=== PATIENT | female | born 1995 | race Hispanic/Latino ===

== ENCOUNTER 2018-01-16 23:02 | Outpatient (CLI) | payer SELFPAY ==
[2018-01-16 23:21] VITALS: BP 126/69
[2018-01-17 00:42] LABS: Amphetamine Screen,Urine PRESUMPTIVE NEGATIVE; Benzodiazepines Screen,Urine PRESUMPTIVE NEGATIVE; Cannabinoid Screen,Urine PRESUMPTIVE NEGATIVE; Cocaine Screen,Urine PRESUMPTIVE NEGATIVE; Methadone Screen,Urine PRESUMPTIVE NEGATIVE; Opiate Screen,Urine PRESUMPTIVE NEGATIVE
[2018-01-17 00:45] LABS: Bilirubin,Urine NEG (Negative); Blood,Urine NEG (Negative); Color,Urine Straw (Yellow); Protein,Urine <15 mg/dL mg/dL (Negative); Urobilinogen,Urine < 2.0 mg/dL (<2.0)
== END 2018-01-17 00:32 | disposition home or self-care (01) ==
LOC: TRG 23:02
PROVIDERS: ATTEND Obstetrics & Gynecology
DX: O99.333 Smoking (tobacco) complicating pregnancy, third trimester (principal); F17.200 Nicotine dependence, unspecified, uncomplicated; O47.1 False labor at or after 37 completed weeks of gestation; Z3A.39 39 weeks gestation of pregnancy
CPT/HCPCS: 59025; 80307; 81001

== ENCOUNTER 2018-01-21 05:02 | Outpatient (CLI) | payer OTHER ==
[2018-01-21 05:17] VITALS: BP 127/72
[2018-01-21] MEDS ORDERED: BICITRA PO ONE (06:19)
[2018-01-21] MEDS ORDERED: VISTARIL PO ONE (06:20)
[2018-01-21 07:30] LABS: Bacteria,Urine 1+ /HPF (Negative); Bilirubin,Urine NEG (Negative); Blood,Urine NEG (Negative); Color,Urine Yellow (Yellow); Mucus,Urine FEW /HPF; Protein,Urine <15 mg/dL mg/dL (Negative); Urobilinogen,Urine < 2.0 mg/dL (<2.0)
== END 2018-01-21 06:40 | disposition home or self-care (01) ==
LOC: TRG 05:02
PROVIDERS: ATTEND Obstetrics & Gynecology
DX: O99.333 Smoking (tobacco) complicating pregnancy, third trimester (principal); F17.200 Nicotine dependence, unspecified, uncomplicated; O48.0 Post-term pregnancy; Z3A.40 40 weeks gestation of pregnancy
CPT/HCPCS: 81001; Q0177

== ENCOUNTER 2018-01-22 20:23 | Inpatient (IN) | payer OTHER ==
--- NOTE | 2018-01-22 22:23 | History and Physical Report ---
History of Present Illness Date of examination: 01/22/18 (pt presents tonight with c/o SROM @ 0645 this AM) History of present illness: 22yo with EDC of 3-18 given by her original OB provider in [facility] HX: pt takes a prescription antacid QD last dose @ 1999 today Sugical HX: negative Family HX: Father hypertension; heart attack Mother hypertension STD: denies Smokin-3 cigs / day ETOH: denies Drugs: denies Pt denies any complications in this . Past History - Obstetrical History Expected Date of Delivery: 01/21/18 Actual Gestation: 40 Week(s) 1 Day(s) : 1 Para: 0 Number of Living Children: 0 Medications and Allergies Allergies Allergy/AdvReac Type Severity Reaction Status Date / Time No Known Allergies Allergy Verified 01/21/18 06:31 - Physical Exam Breasts: Positive: deferred Cardiovascular: Regular rate, Normal S1, Normal S2 Lungs: Positive: Clear to auscultation, Normal air movement Abdomen: Positive: normal appearance, soft, normal bowel sounds. Negative: distention, tenderness Genitourinary (Female): Positive: normal external genitalia, normal perenium Vulva: both: normal Vagina: Positive: normal moisture. Negative: discharge Cervix: Negative: lesion, discharge Uterus: Positive: normal size, normal contour Adnexa: both: normal Anus/Rectum: Positive: normal perianal skin, heme negative. Negative: rectal mass, hemorrhoids Extremities: Positive: edema Deep Tendon Reflex Grade: Normal +2 - Obstetrical FHR: category 1 Uterine Contraction Monitor Mode: External Cervical Dilatation: 1 (per supervisor cook house) Cervical Effacement Percentage: 50 station: -2 Uterine Contraction Pattern: Irregular Uterine Tone Measurement Phase: Resting Uterine Contraction Intensity: Mild Results All other labs normal. OB labs requested from previous provider but due to gestation all OB labs drawn tonight GBS done also. Assessment and Plan - Patient Problems (1) Insufficient care in third trimester Onset Date: ~01/22/18 Current Visit: Yes Status: Acute Plan to address problem: Pt moved to this area a few months ago She states she had care until 35 weeks with [facility]. Records requested Pt gives hx of SROM this AM @ 0645 with no further leakage. Pt negative tonight pooling, nitrazine. US ordered complete OB and BRANDON / EFW. All OB labs drawn, GBS , urine and UDS. Pt is aware we will not induce unless there is indication
[2018-01-22 23:12] LABS: Basophils % (Auto) 0.1 % (0.0-1.8); Eosinophils # (Auto) 0.1 K/mm3 (0.0-0.4); Eosinophils % (Auto) 0.7 % (0.0-4.3); Hematocrit 37.9 % (30.3-42.9); Hemoglobin 12.1 gm/dl (10.1-14.3); Lymphocytes # (Auto) 2.3 K/mm3 (1.2-5.4); Lymphocytes % (Auto) 16.5 % (13.4-35.0); Mean Corpuscular HGB Conc 32 % (30-34); Mean Corpuscular Hemoglobin 30 pg (28-32); Mean Corpuscular Volume 93 fl (79-97); Monocytes # (Auto) 0.6 K/mm3 (0.0-0.8); Platelet Count 165 K/mm3 (140-440); Red Blood Count 4.07 M/mm3 (3.65-5.03)
[2018-01-22 23:24] LABS: Amphetamine Screen,Urine PRESUMPTIVE NEGATIVE; Benzodiazepines Screen,Urine PRESUMPTIVE NEGATIVE; Cannabinoid Screen,Urine PRESUMPTIVE NEGATIVE; Cocaine Screen,Urine PRESUMPTIVE NEGATIVE; Methadone Screen,Urine PRESUMPTIVE NEGATIVE; Opiate Screen,Urine PRESUMPTIVE NEGATIVE
[2018-01-22 23:33] LABS: Hepatitis C Virus Antibody Non-Reactive (NonReactive)
[2018-01-22] MEDS ORDERED: BRETHINE SUB-Q PRN (23:33)
[2018-01-22] MEDS ORDERED: POLYCILLIN/NS 2 GM/100 ML 2 GM/100 ML BAG IV ONE (23:33)
[2018-01-22] MEDS ORDERED: ePHEDrine SULFATE IV PRN (23:33)
[2018-01-22] MEDS ORDERED: MINERAL OIL PO PRN (23:33)
[2018-01-22] MEDS ORDERED: XYLOCAINE 2% INFILTRATI ONE (23:33)
[2018-01-22] MEDS ORDERED: ZOFRAN IV PRN (23:33)
[2018-01-22] MEDS ORDERED: SUBLIMAZE IV PRN (23:40)
--- NOTE | 2018-01-22 23:41 | Progress Note ---
Assessment and Plan - Patient Problems (1) Insufficient care in third trimester Onset Date: ~01/22/18 Current Visit: Yes Status: Acute (2) Prolonged spontaneous rupture of membranes Onset Date: ~01/22/18 Current Visit: Yes Status: Acute Plan to address problem: BRANDON is zero Will admit pt Start low dose pitocin Begin Ampicillin due to GBS unknown VERTEX presentation confirmed by US Pt aware of findings Agrees with POC made aware of pt Subjective - Subjective Date of service: 01/22/18 (US BRANDON 0) Interval history: 22yo with EDC of 01-21-18 given by her original OB provider in [facility] HX: pt takes a prescription antacid QD last dose @ 1999 today Sugical HX: negative Family HX: Father hypertension; heart attack Mother hypertension STD: denies Smokin-3 cigs / day ETOH: denies Drugs: denies Pt denies any complications in this . Patient reports: movement normal Objective - Exam Breasts: deferred Cardiovascular: Regular rate Lungs: Clear to auscultation Abdomen: Present: normal appearance, soft. Absent: distention, tenderness Uterus: Present: normal FHR: auscultation normal, category 1 Uterine Contraction Monitor Mode: External Cervical Dilatation: 1 Cervical Effacement Percentage: 60 station: -3 Uterine Contraction Pattern: Irregular Uterine Tone Measurement Phase: Resting Uterine Contraction Intensity: Mild Extremities: normal, edema Deep Tendon Reflex Grade: Normal +2 - Labs Labs: Abnormal Labs 01/22/18 22:50 WBC 13.7 H RDW 18.0 H Seg Neutrophils % 78.7 H Seg Neutrophils # 10.8 H Laboratory Results - last 24 hr 01/22/18 01/22/18 01/22/18 22:42 22:50 22:50 WBC 13.7 H RBC 4.07 Hgb 12.1 Hct 37.9 MCV 93 MCH 30 MCHC 32 RDW 18.0 H Plt Count 165 Lymph % (Auto) 16.5 [place] % (Auto) 4.0 Eos % (Auto) 0.7 Baso % (Auto) 0.1 Lymph # 2.3 [place] # 0.6 Eos # 0.1 Baso # 0.0 Seg Neutrophils % 78.7 H Seg Neutrophils # 10.8 H Urine Opiates Screen Presumptive negative Urine Methadone Screen Presumptive negative Ur Barbiturates Screen Presumptive negative Ur Phencyclidine Scrn Presumptive negative Ur Amphetamines Screen Presumptive negative U Benzodiazepines Scrn Presumptive negative Urine Cocaine Screen Presumptive negative U Marijuana (THC) Screen Presumptive negative Drugs of Abuse Note Disclamer Hep Bs Antigen Hepatitis C Antibody Non-reactive 01/22/18 22:50 WBC RBC Hgb Hct MCV MCH MCHC RDW Plt Count Lymph % (Auto) [place] % (Auto) Eos % (Auto) Baso % (Auto) Lymph # [place] # Eos # Baso # Seg Neutrophils % Seg Neutrophils # Urine Opiates Screen Urine Methadone Screen Ur Barbiturates Screen Ur Phencyclidine Scrn Ur Amphetamines Screen U Benzodiazepines Scrn Urine Cocaine Screen U Marijuana (THC) Screen Drugs of Abuse Note Hep Bs Antigen Non-reactive Hepatitis C Antibody
[2018-01-22] MEDS ORDERED: PITOCin/NS 30 UNIT/500ML 30 UNITS/500 ML BAG IV SCH (23:45)
[2018-01-22] MEDS ORDERED: PITOCin/NS 20 UNIT/1000ML DRIP 20 UNITS/1,000 ML BAG IV SCH (23:45)
--- NOTE | 2018-01-23 00:58 | Ultrasound Report ---
FINAL REPORT EXAM: US OB > = 14 WEEKS FETUS HISTORY: insufficient care TECHNIQUE: Transabdominal imaging was obtained of the pelvis along with Doppler interrogation of the uterus. FINDINGS: There is a single viable intrauterine in cephalic presentation with an estimated age age of 37 weeks 1 day based on sonographic criteria. A complete survey of organs was not obtained. The heart is 145 BPM. The placenta is along the right lateral wall and is grade 2. The cervical length is 2.3 cm. The BRANDON is 1.4 cm which is markedly diminished. Estimated weight is 2897 grams. The head circumference/abdominal circumference ratio is 1.13 which is elevated. IMPRESSION: Single viable intra in cephalic presentation corresponding to 37 weeks 1 day. The heart rate is 145 BPM. Oligohydramnios. the BRANDON is 1.4 cm.
[2018-01-23] MEDS: NORMOSOL-R PH 7.4 1,000 ML IV SCH ×3 (01:36→08:35)
[2018-01-23 02:03] LABS: Rubella IgG Antibody Non-Immune (Immune)
[2018-01-23] MEDS: AMPICILLIN/NS 1 GM/50 ML 1 GM/50 ML BAG IV SCH ×2 (04:56→09:35)
--- NOTE | 2018-01-23 05:55 | Progress Note ---
Assessment and Plan tracing intermittent SVE 3-4,100,-1 ISE/IUPC placed Pt requesting Epidural Bolus started Will increase pit per protocol. Re-eval after epidural Subjective - Subjective Date of service: 01/23/18 (increasing pain with ctx) Interval history: 22yo with EDC of 318 given by her original OB provider in [facility] HX: pt takes a prescription antacid QD last dose @ 1999 today Sugical HX: negative Family HX: Father hypertension; heart attack Mother hypertension STD: denies Smokin-3 cigs / day ETOH: denies Drugs: denies Pt denies any complications in this . Patient reports: movement normal, contractions Objective - Vital Signs Vital Signs: Vital Signs - 12hr 01/23/18 01/23/18 01/23/18 01:43 01:49 02:35 Temperature 99.1 F Pulse Rate 70 70 Respiratory 18 18 Rate Blood Pressure 113/69 147/90 Blood Pressure 113/69 [Right] 01/23/18 01/23/18 02:40 03:05 Temperature Pulse Rate 71 Respiratory 18 Rate Blood Pressure 147/90 Blood Pressure [Right] - Exam Breasts: deferred Cardiovascular: Regular rate Lungs: Normal air movement Abdomen: Present: normal appearance, soft. Absent: distention, tenderness Uterus: Present: normal FHR: auscultation normal, category 1 Uterine Contraction Monitor Mode: Internal Cervical Dilatation: 3.5 (ISE/IUPC placed) Cervical Effacement Percentage: 100 station: -1 Uterine Contraction Pattern: Irregular Uterine Contraction Intensity: Moderate Extremities: edema Deep Tendon Reflex Grade: Normal +2 - Labs Labs: Abnormal Labs 01/22/18 22:50 WBC 13.7 H RDW 18.0 H Seg Neutrophils % 78.7 H Seg Neutrophils # 10.8 H Laboratory Results - last 24 hr 01/22/18 01/22/18 01/22/18 22:42 22:43 22:50 WBC 13.7 H RBC 4.07 Hgb 12.1 Hct 37.9 MCV 93 MCH 30 MCHC 32 RDW 18.0 H Plt Count 165 Lymph % (Auto) 16.5 [place] % (Auto) 4.0 Eos % (Auto) 0.7 Baso % (Auto) 0.1 Lymph # 2.3 [place] # 0.6 Eos # 0.1 Baso # 0.0 Seg Neutrophils % 78.7 H Seg Neutrophils # 10.8 H Sickle Cell Screen Hemoglobin A1c Urine Opiates Screen Presumptive negative Urine Methadone Screen Presumptive negative Ur Barbiturates Screen Presumptive negative Ur Phencyclidine Scrn Presumptive negative Ur Amphetamines Screen Presumptive negative U Benzodiazepines Scrn Presumptive negative Urine Cocaine Screen Presumptive negative U Marijuana (THC) Screen Presumptive negative Drugs of Abuse Note Disclamer Hep Bs Antigen Hepatitis C Antibody HIV 1&2 Antibody Rapid HIV P24 Antigen Rubella IgG Antibody Blood Type A POSITIVE Antibody Screen Negative 01/22/18 01/22/18 01/22/18 22:50 22:50 22:50 WBC RBC Hgb Hct MCV MCH MCHC RDW Plt Count Lymph % (Auto) [place] % (Auto) Eos % (Auto) Baso % (Auto) Lymph # [place] # Eos # Baso # Seg Neutrophils % Seg Neutrophils # Sickle Cell Screen Negative Hemoglobin A1c Urine Opiates Screen Urine Methadone Screen Ur Barbiturates Screen Ur Phencyclidine Scrn Ur Amphetamines Screen U Benzodiazepines Scrn Urine Cocaine Screen U Marijuana (THC) Screen Drugs of Abuse Note Hep Bs Antigen Non-reactive Hepatitis C Antibody Non-reactive HIV 1&2 Antibody Rapid Non react HIV P24 Antigen Non react Rubella IgG Antibody Non-immune Blood Type Antibody Screen 01/22/18 22:50 WBC RBC Hgb Hct MCV MCH MCHC RDW Plt Count Lymph % (Auto) [place] % (Auto) Eos % (Auto) Baso % (Auto) Lymph # [place] # Eos # Baso # Seg Neutrophils % Seg Neutrophils # Sickle Cell Screen Hemoglobin A1c 4.9 Urine Opiates Screen Urine Methadone Screen Ur Barbiturates Screen Ur Phencyclidine Scrn Ur Amphetamines Screen U Benzodiazepines Scrn Urine Cocaine Screen U Marijuana (THC) Screen Drugs of Abuse Note Hep Bs Antigen Hepatitis C Antibody HIV 1&2 Antibody Rapid HIV P24 Antigen Rubella IgG Antibody Blood Type Antibody Screen
[2018-01-23] MEDS ORDERED: ePHEDrine SULFATE IV PRN (06:50)
[2018-01-23] MEDS ORDERED: NARCAN 2 MG/2 ML IV PRN (06:50)
--- NOTE | 2018-01-23 06:50 | Anesthesia Consultation ---
Anesthesia Consult and Med Hx Date of service: 01/23/18 - Airway Anesthetic Teeth Evaluation: Good ROM Head & Neck: Adequate Mental/Hyoid Distance: Adequate Mallampati Class: Class II Intubation Access Assessment: Good - Pulmonary Exam CTA: Yes - Cardiac Exam Cardiac Exam: No Murmur - Pre-Operative Health Status ASA Pre-Surgery Classification: ASA2 Proposed Anesthetic Plan: Epidural - Pulmonary Hx Asthma: Yes (inhaler used within last year) COPD: No Hx Pneumonia: No - Cardiovascular System Hx Hypertension: No - Central Nervous System Hx Seizures: No Hx Psychiatric Problems: No - Endocrine Hx Renal Disease: No Hx End Stage Renal Disease: No Hx Hypothyroidism: No Hx Hyperthyroidism: No - Hematic Hx Anemia: Yes (pre ) Hx Sickle Cell Disease: No - Other Systems Hx Alcohol Use: No
[2018-01-23] MEDS ORDERED: fentaNYL-BUPIV 2 MCG/ML-0.125% 200 MCG/100 ML BAG EPIDURAL SCH (07:00)
--- NOTE | 2018-01-23 07:38 | Progress Note ---
Assessment and Plan patient comfortable with epidural. currently afebrile. no change in SVE. Continue to titrate pitocin for adequate labor. directed rn to change position frequently. Dr. Crouch aware of patient's status. will reeval PRN. - Patient Problems (1) 40 weeks gestation of Current Visit: Yes Status: Acute (2) Current smoker Current Visit: Yes Status: Acute (3) Insufficient care in third trimester Onset Date: ~01/22/18 Current Visit: Yes Status: Acute (4) Prolonged spontaneous rupture of membranes Onset Date: ~01/22/18 Current Visit: Yes Status: Acute Plan to address problem: monitor s/s infections temp q2h continue amp q4h until delivery Subjective - Subjective Date of service: 01/23/18 Principal diagnosis: Prolonged ROM (01/22/18 @ 0645) @ Patient reports: no new complaints (comfortable with epidural) Objective - Vital Signs Vital Signs: Vital Signs - 12hr 01/23/18 01/23/18 01/23/18 01:43 01:49 02:35 Temperature 99.1 F Pulse Rate 70 70 Respiratory 18 18 Rate Blood Pressure 113/69 147/90 Blood Pressure 113/69 [Right] O2 Sat by Pulse Oximetry 01/23/18 01/23/18 01/23/18 02:40 03:05 06:20 Temperature Pulse Rate 71 76 Respiratory 18 Rate Blood Pressure 147/90 114/79 Blood Pressure [Right] O2 Sat by Pulse Oximetry 01/23/18 01/23/18 01/23/18 06:32 06:33 06:38 Temperature Pulse Rate 79 74 80 Respiratory Rate Blood Pressure Blood Pressure [Right] O2 Sat by Pulse 94 95 95 Oximetry 01/23/18 01/23/18 01/23/18 06:40 06:43 06:45 Temperature Pulse Rate 90 73 69 Respiratory Rate Blood Pressure 136/65 125/68 Blood Pressure [Right] O2 Sat by Pulse 94 95 Oximetry 01/23/18 01/23/18 01/23/18 06:46 06:47 06:48 Temperature Pulse Rate 82 82 80 Respiratory Rate Blood Pressure 124/58 Blood Pressure [Right] O2 Sat by Pulse 92 96 Oximetry 01/23/18 01/23/18 01/23/18 06:53 06:54 06:58 Temperature Pulse Rate 69 74 83 Respiratory Rate Blood Pressure 121/57 Blood Pressure [Right] O2 Sat by Pulse 93 96 Oximetry 01/23/18 01/23/18 01/23/18 07:00 07:03 07:06 Temperature Pulse Rate 83 88 90 Respiratory Rate Blood Pressure Blood Pressure [Right] O2 Sat by Pulse 86 95 94 Oximetry 01/23/18 01/23/18 01/23/18 07:08 07:13 07:18 Temperature Pulse Rate 87 81 84 Respiratory Rate Blood Pressure Blood Pressure [Right] O2 Sat by Pulse 95 96 97 Oximetry 01/23/18 01/23/18 01/23/18 07:23 07:28 07:33 Temperature Pulse Rate 76 80 83 Respiratory Rate Blood Pressure Blood Pressure [Right] O2 Sat by Pulse 97 96 96 Oximetry 01/23/18 07:35 Temperature Pulse Rate 75 Respiratory Rate Blood Pressure 127/68 Blood Pressure [Right] O2 Sat by Pulse Oximetry - Exam Breasts: normal Cardiovascular: Regular rate Lungs: Clear to auscultation, Normal air movement Abdomen: Present: normal appearance, soft Vulva: both: normal Uterus: Present: normal FHR: category 2 Uterine Contraction Monitor Mode: Internal Cervical Dilatation: 3.5 Cervical Effacement Percentage: 80 station: -2 Uterine Contraction Frequency (min): 2-3 Uterine Contraction Duration: 60 Uterine Contraction Pattern: Regular Uterine Tone Measurement Phase: Contraction Uterine Contraction Intensity: Mild Extremities: normal Deep Tendon Reflex Grade: Normal +2 - Labs Labs: Abnormal Labs 01/22/18 22:50 WBC 13.7 H RDW 18.0 H Seg Neutrophils % 78.7 H Seg Neutrophils # 10.8 H Laboratory Results - last 24 hr 01/22/18 01/22/18 01/22/18 22:42 22:43 22:50 WBC 13.7 H RBC 4.07 Hgb 12.1 Hct 37.9 MCV 93 MCH 30 MCHC 32 RDW 18.0 H Plt Count 165 Lymph % (Auto) 16.5 [place] % (Auto) 4.0 Eos % (Auto) 0.7 Baso % (Auto) 0.1 Lymph # 2.3 [place] # 0.6 Eos # 0.1 Baso # 0.0 Seg Neutrophils % 78.7 H Seg Neutrophils # 10.8 H Sickle Cell Screen Hemoglobin A1c Urine Opiates Screen Presumptive negative Urine Methadone Screen Presumptive negative Ur Barbiturates Screen Presumptive negative Ur Phencyclidine Scrn Presumptive negative Ur Amphetamines Screen Presumptive negative U Benzodiazepines Scrn Presumptive negative Urine Cocaine Screen Presumptive negative U Marijuana (THC) Screen Presumptive negative Drugs of Abuse Note Disclamer Hep Bs Antigen Hepatitis C Antibody HIV 1&2 Antibody Rapid HIV P24 Antigen Rubella IgG Antibody Blood Type A POSITIVE Antibody Screen Negative 01/22/18 01/22/18 01/22/18 22:50 22:50 22:50 WBC RBC Hgb Hct MCV MCH MCHC RDW Plt Count Lymph % (Auto) [place] % (Auto) Eos % (Auto) Baso % (Auto) Lymph # [place] # Eos # Baso # Seg Neutrophils % Seg Neutrophils # Sickle Cell Screen Negative Hemoglobin A1c Urine Opiates Screen Urine Methadone Screen Ur Barbiturates Screen Ur Phencyclidine Scrn Ur Amphetamines Screen U Benzodiazepines Scrn Urine Cocaine Screen U Marijuana (THC) Screen Drugs of Abuse Note Hep Bs Antigen Non-reactive Hepatitis C Antibody Non-reactive HIV 1&2 Antibody Rapid Non react HIV P24 Antigen Non react Rubella IgG Antibody Non-immune Blood Type Antibody Screen 01/22/18 22:50 WBC RBC Hgb Hct MCV MCH MCHC RDW Plt Count Lymph % (Auto) [place] % (Auto) Eos % (Auto) Baso % (Auto) Lymph # [place] # Eos # Baso # Seg Neutrophils % Seg Neutrophils # Sickle Cell Screen Hemoglobin A1c 4.9 Urine Opiates Screen Urine Methadone Screen Ur Barbiturates Screen Ur Phencyclidine Scrn Ur Amphetamines Screen U Benzodiazepines Scrn Urine Cocaine Screen U Marijuana (THC) Screen Drugs of Abuse Note Hep Bs Antigen Hepatitis C Antibody HIV 1&2 Antibody Rapid HIV P24 Antigen Rubella IgG Antibody Blood Type Antibody Screen
[2018-01-23] MEDS ORDERED: PITOCin/NS 30 UNIT/500ML 30 UNITS/500 ML BAG IV SCH (08:00)
[2018-01-23] MEDS ORDERED: XYLOCAINE MPF 2% ONE (08:46)
--- NOTE | 2018-01-23 09:42 | Progress Note ---
Assessment and Plan recevied call from nurse re: episodic late decels despite position change, o2 and d/c of pitocin. Upon revieweing tracing - early variables noted w/ peroids of marked variability, patient flat to back. SVE with good change in dilation but not decent; vertex remains -2 station and not well applied to cervix. Patient turned to right lateral. Amnioinfusion ordered. Will restart pitocin after 20 minute recovery period. Discussed concerns re: baby remaining at -2 station and possible need for operative for failure to decend and/or intolerance to labor. All questions addressed, pt and family verbalized understanding. Dr. Crouch updated. - Patient Problems (1) 40 weeks gestation of Current Visit: Yes Status: Acute (2) Current smoker Current Visit: Yes Status: Acute (3) Insufficient care in third trimester Onset Date: ~01/22/18 Current Visit: Yes Status: Acute (4) Prolonged spontaneous rupture of membranes Onset Date: ~01/22/18 Current Visit: Yes Status: Acute Subjective - Subjective Date of service: 01/23/18 Principal diagnosis: Prolonged ROM (01/22/18 @ 0645), induction of labor Patient reports: no new complaints (comfortable with epidural) Objective - Vital Signs Vital Signs: Vital Signs - 12hr 01/23/18 01/23/18 01/23/18 01:43 01:49 02:35 Temperature 99.1 F Pulse Rate 70 70 Respiratory 18 18 Rate Blood Pressure 113/69 147/90 Blood Pressure 113/69 [Right] O2 Sat by Pulse Oximetry 01/23/18 01/23/18 01/23/18 02:40 03:05 06:20 Temperature Pulse Rate 71 76 Respiratory 18 Rate Blood Pressure 147/90 114/79 Blood Pressure [Right] O2 Sat by Pulse Oximetry 01/23/18 01/23/18 01/23/18 06:32 06:33 06:38 Temperature Pulse Rate 79 74 80 Respiratory Rate Blood Pressure Blood Pressure [Right] O2 Sat by Pulse 94 95 95 Oximetry 01/23/18 01/23/18 01/23/18 06:40 06:43 06:45 Temperature Pulse Rate 90 73 69 Respiratory Rate Blood Pressure 136/65 125/68 Blood Pressure [Right] O2 Sat by Pulse 94 95 Oximetry 01/23/18 01/23/18 01/23/18 06:46 06:47 06:48 Temperature Pulse Rate 82 82 80 Respiratory Rate Blood Pressure 124/58 Blood Pressure [Right] O2 Sat by Pulse 92 96 Oximetry 01/23/18 01/23/18 01/23/18 06:53 06:54 06:58 Temperature Pulse Rate 69 74 83 Respiratory Rate Blood Pressure 121/57 Blood Pressure [Right] O2 Sat by Pulse 93 96 Oximetry 01/23/18 01/23/18 01/23/18 07:00 07:03 07:06 Temperature Pulse Rate 83 88 90 Respiratory Rate Blood Pressure Blood Pressure [Right] O2 Sat by Pulse 86 95 94 Oximetry 01/23/18 01/23/18 01/23/18 07:08 07:13 07:18 Temperature Pulse Rate 87 81 84 Respiratory Rate Blood Pressure Blood Pressure [Right] O2 Sat by Pulse 95 96 97 Oximetry 01/23/18 01/23/18 01/23/18 07:23 07:28 07:33 Temperature Pulse Rate 76 80 83 Respiratory Rate Blood Pressure Blood Pressure [Right] O2 Sat by Pulse 97 96 96 Oximetry 01/23/18 01/23/18 01/23/18 07:35 07:38 07:40 Temperature Pulse Rate 75 78 78 Respiratory Rate Blood Pressure 127/68 Blood Pressure [Right] O2 Sat by Pulse 96 94 Oximetry 01/23/18 01/23/18 01/23/18 07:43 07:45 07:48 Temperature Pulse Rate 71 71 71 Respiratory Rate Blood Pressure Blood Pressure [Right] O2 Sat by Pulse 95 94 93 Oximetry 01/23/1818 01/23/18 07:53 07:56 07:58 Temperature Pulse Rate 67 76 82 Respiratory Rate Blood Pressure Blood Pressure [Right] O2 Sat by Pulse 94 94 97 Oximetry 01/23/18 01/23/18 01/23/18 07:59 08:03 08:05 Temperature Pulse Rate 81 82 70 Respiratory Rate Blood Pressure 131/74 129/75 Blood Pressure [Right] O2 Sat by Pulse 99 Oximetry 01/23/18 01/23/18 01/23/18 08:08 08:13 08:18 Temperature Pulse Rate 69 79 68 Respiratory Rate Blood Pressure Blood Pressure [Right] O2 Sat by Pulse 99 99 98 Oximetry 01/23/18 01/23/18 01/23/18 08:23 08:28 08:33 Temperature Pulse Rate 82 67 66 Respiratory Rate Blood Pressure Blood Pressure [Right] O2 Sat by Pulse 97 98 97 Oximetry 01/23/18 01/23/18 01/23/18 08:35 08:38 08:43 Temperature Pulse Rate 74 83 69 Respiratory Rate Blood Pressure Blood Pressure [Right] O2 Sat by Pulse 99 99 Oximetry 01/23/18 01/23/18 01/23/18 08:48 08:51 08:53 Temperature 97.4 F L Pulse Rate 77 87 Respiratory 18 Rate Blood Pressure Blood Pressure 106/58 [Right] O2 Sat by Pulse 98 98 98 Oximetry 01/23/18 01/23/18 01/23/18 08:57 08:58 09:03 Temperature Pulse Rate 81 79 82 Respiratory Rate Blood Pressure 106/58 Blood Pressure [Right] O2 Sat by Pulse 98 97 Oximetry 01/23/18 01/23/18 01/23/18 09:05 09:08 09:11 Temperature Pulse Rate 74 79 134 H Respiratory Rate Blood Pressure 111/64 Blood Pressure [Right] O2 Sat by Pulse 96 93 Oximetry 01/23/18 01/23/18 01/23/18 09:13 09:18 09:23 Temperature Pulse Rate 102 H 80 91 H Respiratory Rate Blood Pressure Blood Pressure [Right] O2 Sat by Pulse 96 96 96 Oximetry 01/23/18 09:28 Temperature Pulse Rate 91 H Respiratory Rate Blood Pressure Blood Pressure [Right] O2 Sat by Pulse 98 Oximetry - Exam Breasts: normal Cardiovascular: Regular rate Lungs: Clear to auscultation, Normal air movement Abdomen: Present: normal appearance Vulva: both: normal Uterus: Present: normal FHR: category 2 Uterine Contraction Monitor Mode: Internal Cervical Dilatation: 5 Cervical Effacement Percentage: 100 station: -2 Uterine Contraction Frequency (min): 2-4 Uterine Contraction Duration: 60 Uterine Contraction Pattern: Regular Uterine Tone Measurement Phase: Contraction Uterine Contraction Intensity: Moderate Extremities: normal - Labs Labs: Abnormal Labs 01/22/18 22:50 WBC 13.7 H RDW 18.0 H Seg Neutrophils % 78.7 H Seg Neutrophils # 10.8 H Laboratory Results - last 24 hr 01/22/18 01/22/18 01/22/18 22:42 22:43 22:50 WBC 13.7 H RBC 4.07 Hgb 12.1 Hct 37.9 MCV 93 MCH 30 MCHC 32 RDW 18.0 H Plt Count 165 Lymph % (Auto) 16.5 [place] % (Auto) 4.0 Eos % (Auto) 0.7 Baso % (Auto) 0.1 Lymph # 2.3 [place] # 0.6 Eos # 0.1 Baso # 0.0 Seg Neutrophils % 78.7 H Seg Neutrophils # 10.8 H Sickle Cell Screen Hemoglobin A1c Urine Opiates Screen Presumptive negative Urine Methadone Screen Presumptive negative Ur Barbiturates Screen Presumptive negative Ur Phencyclidine Scrn Presumptive negative Ur Amphetamines Screen Presumptive negative U Benzodiazepines Scrn Presumptive negative Urine Cocaine Screen Presumptive negative U Marijuana (THC) Screen Presumptive negative Drugs of Abuse Note Disclamer Hep Bs Antigen Hepatitis C Antibody HIV 1&2 Antibody Rapid HIV P24 Antigen Rubella IgG Antibody Blood Type A POSITIVE Antibody Screen Negative 01/22/18 01/22/18 01/22/18 22:50 22:50 22:50 WBC RBC Hgb Hct MCV MCH MCHC RDW Plt Count Lymph % (Auto) [place] % (Auto) Eos % (Auto) Baso % (Auto) Lymph # [place] # Eos # Baso # Seg Neutrophils % Seg Neutrophils # Sickle Cell Screen Negative Hemoglobin A1c Urine Opiates Screen Urine Methadone Screen Ur Barbiturates Screen Ur Phencyclidine Scrn Ur Amphetamines Screen U Benzodiazepines Scrn Urine Cocaine Screen U Marijuana (THC) Screen Drugs of Abuse Note Hep Bs Antigen Non-reactive Hepatitis C Antibody Non-reactive HIV 1&2 Antibody Rapid Non react HIV P24 Antigen Non react Rubella IgG Antibody Non-immune Blood Type Antibody Screen 01/22/18 22:50 WBC RBC Hgb Hct MCV MCH MCHC RDW Plt Count Lymph % (Auto) [place] % (Auto) Eos % (Auto) Baso % (Auto) Lymph # [place] # Eos # Baso # Seg Neutrophils % Seg Neutrophils # Sickle Cell Screen Hemoglobin A1c 4.9 Urine Opiates Screen Urine Methadone Screen Ur Barbiturates Screen Ur Phencyclidine Scrn Ur Amphetamines Screen U Benzodiazepines Scrn Urine Cocaine Screen U Marijuana (THC) Screen Drugs of Abuse Note Hep Bs Antigen Hepatitis C Antibody HIV 1&2 Antibody Rapid HIV P24 Antigen Rubella IgG Antibody Blood Type Antibody Screen
[2018-01-23] MEDS ORDERED: NACL 0.9% 1000 ML 1,000 ML VG SCH (10:00)
--- NOTE | 2018-01-23 12:36 | Progress Note ---
Subjective Date of service: 01/23/18 Principal diagnosis: Prolonged ROM (01/22/18 @ 0645), induction of labor Interval history: due to ineffectiveness of epidural infusion. Epidural has been replaced L3-L4 space. Combined spinal epidural technique Atraumatic , easy placement. Objective - Constitutional Vitals: Vital Signs - 12hr 01/23/18 01/23/18 01/23/18 01:43 01:49 02:35 Temperature 99.1 F Pulse Rate 70 70 Respiratory 18 18 Rate Blood Pressure 113/69 147/90 Blood Pressure 113/69 [Right] O2 Sat by Pulse Oximetry 01/23/18 01/23/18 01/23/18 02:40 03:05 06:20 Temperature Pulse Rate 71 76 Respiratory 18 Rate Blood Pressure 147/90 114/79 Blood Pressure [Right] O2 Sat by Pulse Oximetry 01/23/18 01/23/18 01/23/18 06:32 06:33 06:38 Temperature Pulse Rate 79 74 80 Respiratory Rate Blood Pressure Blood Pressure [Right] O2 Sat by Pulse 94 95 95 Oximetry 01/23/18 01/23/18 01/23/18 06:40 06:43 06:45 Temperature Pulse Rate 90 73 69 Respiratory Rate Blood Pressure 136/65 125/68 Blood Pressure [Right] O2 Sat by Pulse 94 95 Oximetry 01/23/18 01/23/18 01/23/18 06:46 06:47 06:48 Temperature Pulse Rate 82 82 80 Respiratory Rate Blood Pressure 124/58 Blood Pressure [Right] O2 Sat by Pulse 92 96 Oximetry 01/23/18 01/23/18 01/23/18 06:53 06:54 06:58 Temperature Pulse Rate 69 74 83 Respiratory Rate Blood Pressure 121/57 Blood Pressure [Right] O2 Sat by Pulse 93 96 Oximetry 01/23/18 01/23/18 01/23/18 07:00 07:03 07:06 Temperature Pulse Rate 83 88 90 Respiratory Rate Blood Pressure Blood Pressure [Right] O2 Sat by Pulse 86 95 94 Oximetry 01/23/18 01/23/18 01/23/18 07:08 07:13 07:18 Temperature Pulse Rate 87 81 84 Respiratory Rate Blood Pressure Blood Pressure [Right] O2 Sat by Pulse 95 96 97 Oximetry 01/23/18 01/23/18 01/23/18 07:23 07:28 07:33 Temperature Pulse Rate 76 80 83 Respiratory Rate Blood Pressure Blood Pressure [Right] O2 Sat by Pulse 97 96 96 Oximetry 01/23/1818 01/23/18 07:35 07:38 07:40 Temperature Pulse Rate 75 78 78 Respiratory Rate Blood Pressure 127/68 Blood Pressure [Right] O2 Sat by Pulse 96 94 Oximetry 01/23/1818 / 07:43 07:45 07:48 Temperature Pulse Rate 71 71 71 Respiratory Rate Blood Pressure Blood Pressure [Right] O2 Sat by Pulse 95 94 93 Oximetry 01/23/18 01/23/18/ 07:53 07:56 07:58 Temperature Pulse Rate 67 76 82 Respiratory Rate Blood Pressure Blood Pressure [Right] O2 Sat by Pulse 94 94 97 Oximetry 01/23/18 01/23/18 01/23/18 07:59 08:03 08:05 Temperature Pulse Rate 81 82 70 Respiratory Rate Blood Pressure 131/74 129/75 Blood Pressure [Right] O2 Sat by Pulse 99 Oximetry 01/23/18 01/23/18 01/23/18 08:08 08:13 08:18 Temperature Pulse Rate 69 79 68 Respiratory Rate Blood Pressure Blood Pressure [Right] O2 Sat by Pulse 99 99 98 Oximetry 01/23/18 01/23/18 01/23/18 08:23 08:28 08:33 Temperature Pulse Rate 82 67 66 Respiratory Rate Blood Pressure Blood Pressure [Right] O2 Sat by Pulse 97 98 97 Oximetry 01/23/18 01/23/18 01/23/18 08:35 08:38 08:43 Temperature Pulse Rate 74 83 69 Respiratory Rate Blood Pressure Blood Pressure [Right] O2 Sat by Pulse 99 99 Oximetry 01/23/18 01/23/18 01/23/18 08:48 08:51 08:53 Temperature 97.4 F L Pulse Rate 77 87 Respiratory 18 Rate Blood Pressure Blood Pressure 106/58 [Right] O2 Sat by Pulse 98 98 98 Oximetry 01/23/18 01/23/18 01/23/18 08:57 08:58 09:03 Temperature Pulse Rate 81 79 82 Respiratory Rate Blood Pressure 106/58 Blood Pressure [Right] O2 Sat by Pulse 98 97 Oximetry 01/23/18 01/23/18 01/23/18 09:05 09:08 09:11 Temperature Pulse Rate 74 79 134 H Respiratory Rate Blood Pressure 111/64 Blood Pressure [Right] O2 Sat by Pulse 96 93 Oximetry 01/23/18 01/23/18 01/23/18 09:13 09:18 09:23 Temperature Pulse Rate 102 H 80 91 H Respiratory Rate Blood Pressure Blood Pressure [Right] O2 Sat by Pulse 96 96 96 Oximetry 01/23/18 01/23/18 01/23/18 09:28 12:13 12:14 Temperature Pulse Rate 91 H 84 85 Respiratory Rate Blood Pressure 139/78 Blood Pressure [Right] O2 Sat by Pulse 98 97 Oximetry 01/23/18 01/23/18 01/23/18 12:19 12:24 12:25 Temperature Pulse Rate 74 Respiratory Rate Blood Pressure 113/69 Blood Pressure [Right] O2 Sat by Pulse 97 93 95 Oximetry 01/23/18 01/23/18 01/23/18 12:27 12:30 12:35 Temperature Pulse Rate 69 79 77 Respiratory Rate Blood Pressure 127/75 Blood Pressure [Right] O2 Sat by Pulse 94 93 Oximetry 01/23/18 12:36 Temperature Pulse Rate 68 Respiratory Rate Blood Pressure 109/55 Blood Pressure [Right] O2 Sat by Pulse Oximetry - Labs CBC & Chem 7: 01/22/18 22:50 Labs: Abnormal lab results 01/22/18 Range/Units 22:50 WBC 13.7 H (4.5-11.0) K/mm3 RDW 18.0 H (13.2-15.2) % Seg Neutrophils % 78.7 H (40.0-70.0) % Seg Neutrophils # 10.8 H (1.8-7.7) K/mm3
--- NOTE | 2018-01-23 13:03 | Progress Note ---
Assessment and Plan Good fluid return from amnoinfusion, SVE now 9.5/100/-1 with good decent during ctx. plan to try pushing in 30 minutes if complete. FHT with variables and marked variabilty at times. Dr. Crouch aware of patient's status. - Patient Problems (1) 40 weeks gestation of Current Visit: Yes Status: Acute (2) Current smoker Current Visit: Yes Status: Acute (3) Insufficient care in third trimester Onset Date: ~01/22/18 Current Visit: Yes Status: Acute (4) Prolonged spontaneous rupture of membranes Onset Date: ~01/22/18 Current Visit: Yes Status: Acute Subjective - Subjective Date of service: 01/23/18 Principal diagnosis: Prolonged ROM (01/22/18 @ 0645), induction of labor Patient reports: new complaints (hot spot right groin), contractions Objective - Vital Signs Vital Signs: Vital Signs - 12hr 01/23/18 01/23/18 01/23/18 01:43 01:49 02:35 Temperature 99.1 F Pulse Rate 70 70 Respiratory 18 18 Rate Blood Pressure 113/69 147/90 Blood Pressure 113/69 [Right] O2 Sat by Pulse Oximetry 01/23/18 01/23/18 01/23/18 02:40 03:05 06:20 Temperature Pulse Rate 71 76 Respiratory 18 Rate Blood Pressure 147/90 114/79 Blood Pressure [Right] O2 Sat by Pulse Oximetry 01/23/18 01/23/18 01/23/18 06:32 06:33 06:38 Temperature Pulse Rate 79 74 80 Respiratory Rate Blood Pressure Blood Pressure [Right] O2 Sat by Pulse 94 95 95 Oximetry 01/23/18 01/23/18 01/23/18 06:40 06:43 06:45 Temperature Pulse Rate 90 73 69 Respiratory Rate Blood Pressure 136/65 125/68 Blood Pressure [Right] O2 Sat by Pulse 94 95 Oximetry 01/23/18 01/23/18 01/23/18 06:46 06:47 06:48 Temperature Pulse Rate 82 82 80 Respiratory Rate Blood Pressure 124/58 Blood Pressure [Right] O2 Sat by Pulse 92 96 Oximetry 01/23/18 01/23/18 01/23/18 06:53 06:54 06:58 Temperature Pulse Rate 69 74 83 Respiratory Rate Blood Pressure 121/57 Blood Pressure [Right] O2 Sat by Pulse 93 96 Oximetry 2018 20/18 01/23/18 07:00 07:03 07:06 Temperature Pulse Rate 83 88 90 Respiratory Rate Blood Pressure Blood Pressure [Right] O2 Sat by Pulse 86 95 94 Oximetry 2018 /20/18 /20/18 07:08 07:13 07:18 Temperature Pulse Rate 87 81 84 Respiratory Rate Blood Pressure Blood Pressure [Right] O2 Sat by Pulse 95 96 97 Oximetry 18 20/18 /18 07:23 07:28 07:33 Temperature Pulse Rate 76 80 83 Respiratory Rate Blood Pressure Blood Pressure [Right] O2 Sat by Pulse 97 96 96 Oximetry 18 /20/18 / 07:35 07:38 07:40 Temperature Pulse Rate 75 78 78 Respiratory Rate Blood Pressure 127/68 Blood Pressure [Right] O2 Sat by Pulse 96 94 Oximetry 18 /20/18 /2018 07:43 07:45 07:48 Temperature Pulse Rate 71 71 71 Respiratory Rate Blood Pressure Blood Pressure [Right] O2 Sat by Pulse 95 94 93 Oximetry 18 /20/18 01/23/18 07:53 07:56 07:58 Temperature Pulse Rate 67 76 82 Respiratory Rate Blood Pressure Blood Pressure [Right] O2 Sat by Pulse 94 94 97 Oximetry 18 01/23/18 /18 07:59 08:03 08:05 Temperature Pulse Rate 81 82 70 Respiratory Rate Blood Pressure 131/74 129/75 Blood Pressure [Right] O2 Sat by Pulse 99 Oximetry 18 20/18 01/23/18 08:08 08:13 08:18 Temperature Pulse Rate 69 79 68 Respiratory Rate Blood Pressure Blood Pressure [Right] O2 Sat by Pulse 99 99 98 Oximetry 2018 /20/18 /20/18 08:23 08:28 08:33 Temperature Pulse Rate 82 67 66 Respiratory Rate Blood Pressure Blood Pressure [Right] O2 Sat by Pulse 97 98 97 Oximetry 2018 /20/18 2018 08:35 08:38 08:43 Temperature Pulse Rate 74 83 69 Respiratory Rate Blood Pressure Blood Pressure [Right] O2 Sat by Pulse 99 99 Oximetry 18 01/23/18 01/23/18 08:48 08:51 08:53 Temperature 97.4 F L Pulse Rate 77 87 Respiratory 18 Rate Blood Pressure Blood Pressure 106/58 [Right] O2 Sat by Pulse 98 98 98 Oximetry 01/23/18 01/23/18 01/23/18 08:57 08:58 09:03 Temperature Pulse Rate 81 79 82 Respiratory Rate Blood Pressure 106/58 Blood Pressure [Right] O2 Sat by Pulse 98 97 Oximetry 01/23/18 01/23/18 01/23/18 09:05 09:08 09:11 Temperature Pulse Rate 74 79 134 H Respiratory Rate Blood Pressure 111/64 Blood Pressure [Right] O2 Sat by Pulse 96 93 Oximetry 01/23/18 01/23/18 01/23/18 09:13 09:18 09:23 Temperature Pulse Rate 102 H 80 91 H Respiratory Rate Blood Pressure Blood Pressure [Right] O2 Sat by Pulse 96 96 96 Oximetry 01/23/18 01/23/18 01/23/18 09:28 12:13 12:14 Temperature Pulse Rate 91 H 84 85 Respiratory Rate Blood Pressure 139/78 Blood Pressure [Right] O2 Sat by Pulse 98 97 Oximetry 01/23/18 01/23/18 01/23/18 12:19 12:24 12:25 Temperature Pulse Rate 74 Respiratory Rate Blood Pressure 113/69 Blood Pressure [Right] O2 Sat by Pulse 97 93 95 Oximetry 01/23/18 01/23/18 01/23/18 12:27 12:30 12:35 Temperature Pulse Rate 69 79 77 Respiratory Rate Blood Pressure 127/75 Blood Pressure [Right] O2 Sat by Pulse 94 93 Oximetry 01/23/18 01/23/18 01/23/18 12:36 12:40 12:44 Temperature Pulse Rate 68 69 72 Respiratory Rate Blood Pressure 109/55 Blood Pressure [Right] O2 Sat by Pulse 88 91 Oximetry 01/23/18 01/23/18 01/23/18 12:45 12:50 12:55 Temperature Pulse Rate 73 69 89 Respiratory Rate Blood Pressure Blood Pressure [Right] O2 Sat by Pulse 91 91 94 Oximetry 01/23/18 01/23/18 12:56 13:01 Temperature Pulse Rate 74 81 Respiratory Rate Blood Pressure Blood Pressure [Right] O2 Sat by Pulse 91 96 Oximetry - Exam Breasts: normal Cardiovascular: Regular rate Lungs: Normal air movement Abdomen: Present: normal appearance, soft Vulva: both: normal Uterus: Present: normal FHR: category 2 Uterine Contraction Monitor Mode: Internal Cervical Dilatation: 9.5 Cervical Effacement Percentage: 100 station: -1 Uterine Contraction Frequency (min): 2-4 Uterine Contraction Duration: 60 Uterine Contraction Pattern: Regular Uterine Tone Measurement Phase: Contraction Uterine Contraction Intensity: Moderate Extremities: normal - Labs Labs: Abnormal Labs 01/22/18 22:50 WBC 13.7 H RDW 18.0 H Seg Neutrophils % 78.7 H Seg Neutrophils # 10.8 H Laboratory Results - last 24 hr 01/22/18 01/22/18 01/22/18 22:42 22:43 22:50 WBC 13.7 H RBC 4.07 Hgb 12.1 Hct 37.9 MCV 93 MCH 30 MCHC 32 RDW 18.0 H Plt Count 165 Lymph % (Auto) 16.5 Miner % (Auto) 4.0 Eos % (Auto) 0.7 Baso % (Auto) 0.1 Lymph # 2.3 Miner # 0.6 Eos # 0.1 Baso # 0.0 Seg Neutrophils % 78.7 H Seg Neutrophils # 10.8 H Sickle Cell Screen Hemoglobin A1c Urine Opiates Screen Presumptive negative Urine Methadone Screen Presumptive negative Ur Barbiturates Screen Presumptive negative Ur Phencyclidine Scrn Presumptive negative Ur Amphetamines Screen Presumptive negative U Benzodiazepines Scrn Presumptive negative Urine Cocaine Screen Presumptive negative U Marijuana (THC) Screen Presumptive negative Drugs of Abuse Note Disclamer Hep Bs Antigen Hepatitis C Antibody HIV 1&2 Antibody Rapid HIV P24 Antigen Rubella IgG Antibody Blood Type A POSITIVE Antibody Screen Negative 01/22/18 01/22/18 01/22/18 22:50 22:50 22:50 WBC RBC Hgb Hct MCV MCH MCHC RDW Plt Count Lymph % (Auto) Miner % (Auto) Eos % (Auto) Baso % (Auto) Lymph # Miner # Eos # Baso # Seg Neutrophils % Seg Neutrophils # Sickle Cell Screen Negative Hemoglobin A1c Urine Opiates Screen Urine Methadone Screen Ur Barbiturates Screen Ur Phencyclidine Scrn Ur Amphetamines Screen U Benzodiazepines Scrn Urine Cocaine Screen U Marijuana (THC) Screen Drugs of Abuse Note Hep Bs Antigen Non-reactive Hepatitis C Antibody Non-reactive HIV 1&2 Antibody Rapid Non react HIV P24 Antigen Non react Rubella IgG Antibody Non-immune Blood Type Antibody Screen 01/22/18 22:50 WBC RBC Hgb Hct MCV MCH MCHC RDW Plt Count Lymph % (Auto) Miner % (Auto) Eos % (Auto) Baso % (Auto) Lymph # Miner # Eos # Baso # Seg Neutrophils % Seg Neutrophils # Sickle Cell Screen Hemoglobin A1c 4.9 Urine Opiates Screen Urine Methadone Screen Ur Barbiturates Screen Ur Phencyclidine Scrn Ur Amphetamines Screen U Benzodiazepines Scrn Urine Cocaine Screen U Marijuana (THC) Screen Drugs of Abuse Note Hep Bs Antigen Hepatitis C Antibody HIV 1&2 Antibody Rapid HIV P24 Antigen Rubella IgG Antibody Blood Type Antibody Screen
--- NOTE | 2018-01-23 13:46 | Procedure Note ---
OB Delivery Note - Delivery Date of Delivery: 01/23/18 ( male) Public Area Attendant: JORGE CORREA Estimated blood loss: 200cc - Vaginal Delivery presentation: vertex Delivery position: OA Intrapartum events: mult.variable deceleratio, other(please specify) (limited care in third trimester) Delivery induction: oxytocin Delivery augmentation: pitocin Delivery monitor: internal FHT, internal uterine Route of delivery: Delivery placenta: spontaneous Delivery cord: 3 umbilical vessels Episiotomy: none Delivery laceration: none Anesthesia: epidural Delivery comments: male del over intact perineum, placed skin to skin on mother's abd. 3 vessel cord clamped and cut. Placenta del intact and complete. no lacerations to repair. EBL 200, apgars 8/9, wt 6#0. mother and placed skin to skin. - Infant A at 1 minute: 8 at 5 minutes: 9 Gender: Male (6#0)
[2018-01-23] MEDS ORDERED: SODIUM CHLORIDE FLUSH SYRINGE 10 ML IV SCH (19:56)
[2018-01-23] MEDS ORDERED: PHENERGAN PO PRN (19:56)
[2018-01-23] MEDS ORDERED: TUCKS PAD TP PRN (19:56)
[2018-01-23] MEDS ORDERED: PITOCin/NS 20 UNIT/1000ML DRIP 20 UNITS/1,000 ML BAG IV SCH (19:56)
[2018-01-23] MEDS ORDERED: DULCOLAX PR PRN (19:56)
[2018-01-23] MEDS ORDERED: MILK OF MAGNESIA PO PRN (19:56)
[2018-01-23] MEDS ORDERED: TYLENOL PO PRN (19:56)
[2018-01-23] MEDS ORDERED: BENADRYL PO PRN (19:56)
[2018-01-23] MEDS ORDERED: LANSINOH TP PRN (19:56)
[2018-01-23] MEDS ORDERED: DERMOPLAST TP PRN (19:56)
[2018-01-23] MEDS ORDERED: MOTRIN PO SCH (21:00)
[2018-01-23] MEDS ORDERED: COLACE PO SCH (22:00)
[2018-01-24 02:11] LABS: Hematocrit 34.9 % (30.3-42.9); Hemoglobin 11.4 gm/dl (10.1-14.3)
--- NOTE | 2018-01-24 06:38 | Discharge Summary ---
Providers - Providers Date of Admission: 01/23/18 00:41 Date of discharge: 01/24/18 (pt agrees with d/c) Attending physician: SOPHIE RÍOS 01/23/18 19:56 Consult to Back End Developer [CONS] Routine Reason For Exam: assistance with , SNS Primary care physician: SOPHIE RÍOS Hospitalization Reason for admission: rupture of membranes Delivery: Episiotomy: none Laceration: none Incision: normal Other procedures: none complications: none Discharge diagnosis: IUP at term delivered baby: male Hospital course: uncomplicated vaginal delivery Pt OOB for AM care. No c/o voiced VSS FF below umb Lochia small Perineum intact H&H slight drop Pt asymptomatic Doing well s/p vag delivery P: d/c today with instructions RTO 4 weeks for PP care. Pt declines circumcision for her son. Condition at discharge: Good Disposition: DC-01 TO HOME OR SELFCARE - Discharge Diagnoses (1) (spontaneous vaginal delivery) Status: Acute Comment: RTO 4 weeks PP care Plan - Discharge Medications Prescriptions: Ibuprofen [Motrin 800 MG tab] 800 mg PO TID PRN #30 tablet PRN Reason: Pain - Provider Discharge Summary Activity: routine, no sex for 6 weeks, no heavy lifting 4 weeks, no strenuous exercise Diet: routine Instructions: routine Additional instructions: [] Smoking cessation referral if applicable(refer to patient education folder for contact #) [] Refer to [facility] Booklet Call your doctor immediately for: * Fever > 100.5 * Heavy vaginal bleeding ( >1 pad per hour) * Severe persistent headache * Shortness of breath * Reddened, hot, painful area to leg or breast * Drainage or odor from incision. * Keep incision clean and dry at all times and follow doctor's instructions regarding bathing/showering - Follow up plan Follow up: SOPHIE RÍOS MD [Primary Care Provider] - 02/23/18 (Congratulations! Please call [phone] to schedule your postpatum visit in 4 weeks. Call with concerns.)
[2018-01-24] MEDS ORDERED: BOOSTRIX IM ONE (06:46)
[2018-01-24] MEDS ORDERED: PRENATAL VITAMIN PO SCH (10:00)
[2018-01-25 17:28] VITALS: BP 111/60
== END 2018-01-25 16:18 | disposition home or self-care (01) | DRG 775 ==
LOC: TRG 20:23 → LD 01-23 00:41 → TRG 01-23 00:41 → OB 01-23 17:07
PROVIDERS: ADMIT Obstetrics & Gynecology; ATTEND Obstetrics & Gynecology
PROC: 10E0XZZ Delivery of Products of Conception, External Approach (ICD-10-PCS; principal; 2018-01-23)
PROC: 3E033VJ Introduction of Other Hormone into Peripheral Vein, Percutaneous Approach (ICD-10-PCS; 2018-01-23)
PROC: 3E0R3BZ Introduction of Anesthetic Agent into Spinal Canal, Percutaneous Approach (ICD-10-PCS; 2018-01-23)
PROC: 00HU33Z Insertion of Infusion Device into Spinal Canal, Percutaneous Approach (ICD-10-PCS; 2018-01-23)
PROC: 10H07YZ Insertion of Other Device into Products of Conception, Via Natural or Artificial Opening (ICD-10-PCS; 2018-01-23)
DX: O42.02 Full-term premature rupture of membranes, onset of labor within 24 hours of rupture (principal); O76 Abnormality in fetal heart rate and rhythm complicating labor and delivery; O99.334 Smoking (tobacco) complicating childbirth; O99.52 Diseases of the respiratory system complicating childbirth; F17.200 Nicotine dependence, unspecified, uncomplicated; J45.909 Unspecified asthma, uncomplicated; Z37.0 Single live birth; Z3A.40 40 weeks gestation of pregnancy; R71.0 Precipitous drop in hematocrit
CPT/HCPCS: 36415; 76805; 80307; 83036; 85014; 85018; 85025; 85660; 86592; 86706; 86762; 86803; 86850; 86900; 86901; 87116; 87591; 87806; 88307; 99211; A6250; G0463; J0290; J2590; J3010; J7030